=== PATIENT | male | born 1980 | race Caucasian/White ===

== ENCOUNTER → 2017-01-26 | Outpatient (CLI) | payer BC ==
[2017-01-26 13:31] LABS: DAYS OF ABSTINENCE 6.5; METHOD OF COLLECTION MASTURBATION; SEMEN COLOR YELLOW (GRY/GRYWHTE); SEMEN TIME OF COLLECTION 935; TYPE OF SPECIMEN CONTAINER STERILE CUP
[2017-01-26 13:37] LABS: SPERM VIABILITY STAIN NOT INDICATED % (>58%)
== END | disposition home or self-care (01) ==
LOC: C.LABSPEC 09:56
PROVIDERS: ATTEND Obstetrics & Gynecology
DX: Z31.41 Encounter for fertility testing (principal)